=== PATIENT | male | born 2000 | race Caucasian/White ===

== ENCOUNTER 2020-08-24 16:17 | Emergency (ER) | payer BC ==
[~2020-08-24] VITALS: Ht 182.9 cm; Wt 86.4 kg
[2020-08-24 16:21] VITALS: TEMP 98.7
[2020-08-24 17:32] VITALS: BP 109/73; PULSE 76
== END 2020-08-24 17:34 | disposition home or self-care (01) ==
LOC: COL.ER 16:17
DX: S61.012A Laceration without foreign body of left thumb without damage to nail, initial encounter (principal); W26.0XXA Contact with knife, initial encounter